=== PATIENT | female | born 1980 | race Caucasian/White ===

== ENCOUNTER → 2024-07-12 | Outpatient (CLI) | payer BC ==
--- NOTE | 2024-07-12 13:00 | CT ---
EXAMINATION TYPE: CT sinus w con DATE OF EXAM: 07/12/2024 COMPARISON: None. CLINICAL INDICATION: Female, 44 years old with history of J01.01 ACUTE RECURRENT MAXILLARY SINUSITIS; PHH, right side swelling, pain, hot to touch TECHNIQUE: CT scan of the facial bones is performed with IV Contrast, patient injected with 100 mL of Isovue [address] DLP: 639 mGycm Automated exposure control for dose reduction was used. TECHNIQUE: CT scan of the sinuses is performed without contrast, axial images are obtained, coronal r eformatted images are also reviewed. FINDINGS: The paranasal sinuses including the frontal, ethmoid, sphenoid, and maxillary sinuses bila terally are well-aerated without abnormal opacification or suspicious air-fluid levels. The ostiomea waleska complex is patent bilaterally on the coronal images. Visualized portion of mastoid air cells show no abnormal opacification. The globes are intact bilate rally. Visualized brain parenchyma is unremarkable. IMPRESSION: The paranasal sinuses are clear and the ostiomeatal complex is patent bilaterally. [facility], , 07/12/2024 12:58 PM
== END | disposition home or self-care (01) ==
LOC: RADCTMAIN 12:25
PROVIDERS: ATTEND Family Medicine
DX: J01.01 Acute recurrent maxillary sinusitis (principal)
CPT/HCPCS: 70487; Q9967